=== PATIENT | female | born 1985 | race Caucasian/White ===

== ENCOUNTER 2021-07-26 14:59 | Emergency (ER) | payer MEDICAID, OTHER ==
[~2021-07-26] VITALS: Ht 152.4 cm; Wt 46.7 kg
[2021-07-26 16:26] VITALS: BP 109/77
[2021-07-26] MEDS ORDERED: ACETAMINOPHEN 325 MG TAB PO ONE (17:30)
== END 2021-07-26 17:55 | disposition home or self-care (01) ==
LOC: EDBD 14:59 → ER 14:59
DX: S63.501A Unspecified sprain of right wrist, initial encounter (principal); F17.210 Nicotine dependence, cigarettes, uncomplicated; Z88.8 Allergy status to other drugs, medicaments and biological substances; V49.9XXA Car occupant (driver) (passenger) injured in unspecified traffic accident, initial encounter; Y93.89 Activity, other specified; Y92.410 Unspecified street and highway as the place of occurrence of the external cause; Y99.8 Other external cause status
CPT/HCPCS: 29125; 73110